=== PATIENT | male | born 1950 | race Caucasian/White ===

== ENCOUNTER 2022-07-06 16:44 | Emergency (ER) | payer MEDICARE, BC ==
[~2022-07-06] VITALS: Ht 170.2 cm; Wt 75.0 kg
[2022-07-06 17:01] VITALS: BP 141/72
[2022-07-06] MEDS ORDERED: cephalexin 250mg capsule PO ONE (18:40)
[2022-07-06] MEDS ORDERED: CEPH-585 PO (18:41)
== END 2022-07-06 18:59 | disposition home or self-care (01) ==
LOC: ER 16:45
DX: S81.831A Puncture wound without foreign body, right lower leg, initial encounter (principal); M79.604 Pain in right leg; I10 Essential (primary) hypertension; Z85.3 Personal history of malignant neoplasm of breast; Z98.890 Other specified postprocedural states; Z79.2 Long term (current) use of antibiotics; W57.XXXA Bitten or stung by nonvenomous insect and other nonvenomous arthropods, initial encounter; Y93.89 Activity, other specified; Y92.89 Other specified places as the place of occurrence of the external cause; Y99.8 Other external cause status
CPT/HCPCS: 99283